=== PATIENT | male | born 1980 | race Caucasian/White ===

== ENCOUNTER 2017-08-30 02:23 | Emergency (ER) | payer SELFPAY ==
[2017-08-30] MEDS: ACETAMINOPHEN 325 MG TAB PO (03:56)
[2017-08-30 05:44] LABS: URINE PH (Dip) POC 5.5 (5.0-8.5)
[2017-08-30 05:44] LABS: URINE BLOOD (Dip) POC Trace-intact (NEGATIVE); URINE KETONES (Dip) POC Negative (NEGATIVE); URINE LEUKOCYTE EST (Dip) POC Negative (NEGATIVE); URINE NITRITE (Dip) POC Negative (NEGATIVE); URINE TOTAL PROTEIN POC Negative (NEGATIVE)
== END 2017-08-30 07:38 | disposition home or self-care (01) ==
LOC: FTE 02:23
DX: S29.9XXA Unspecified injury of thorax, initial encounter (principal); S89.91XA Unspecified injury of right lower leg, initial encounter; V43.53XA Car driver injured in collision with pick-up truck in traffic accident, initial encounter
CPT/HCPCS: 71010; 73510; 76705; 81003; 99284-25